=== PATIENT | male | born 1975 | race Caucasian/White ===

== ENCOUNTER 2020-03-15 19:07 | Emergency (ER) | payer OTHER ==
[~2020-03-15] VITALS: Ht 175.3 cm; Wt 106.6 kg
[2020-03-15] MEDS ORDERED: ATENOLOL 25 MG25 M1 PO (19:28)
[2020-03-15 23:43] LABS: CALCIUM 9.1 mg/dL (8.5-10.1); POTASSIUM 4.5 mmol/L (3.5-5.1)
[2020-03-15] MEDS ORDERED: NORCO 5-325 TA1 EAC2 PO (23:51)
[2020-03-15] MEDS ORDERED: FLEXERIL PO (23:51)
[2020-03-15] MEDS ORDERED: VOLTAREN GEL 1100 G1 TOP (23:51)
[2020-03-16 00:15] VITALS: BP 154/83
--- NOTE | 2020-03-16 15:53 | EKG ---
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
== END 2020-03-16 00:15 | disposition home or self-care (01) ==
LOC: M.ERS 19:07
PROVIDERS: Emergency Medicine Emergency Medical Services
DX: M77.12 Lateral epicondylitis, left elbow (principal); F17.200 Nicotine dependence, unspecified, uncomplicated; Z79.899 Other long term (current) drug therapy

== ENCOUNTER 2020-06-12 14:27 | Emergency (ER) | payer OTHER ==
[~2020-06-12] VITALS: Ht 175.3 cm; Wt 99.8 kg
[~2020-06-12 14:27] MED LIST: ATENOLOL 25 MG25 M1 PO; FLEXERIL PO; NORCO 5-325 TA1 EAC2 PO; VOLTAREN GEL 1100 G1 TOP
[2020-06-12 14:59] LABS: ABSOLUTE BASOPHILS 0.1 thou/uL (0.0-0.2); ABSOLUTE EOSINOPHILS 0.2 thou/uL (0.0-0.7); ABSOLUTE LYMPHOCYTES 2.4 thou/uL (0.8-5.3); ABSOLUTE MONOCYTES 0.7 thou/uL (0.0-1.2); ABSOLUTE NEUTROPHILS 5.7 thou/uL (1.6-8.1); BASOPHILS 0.8 %; HEMATOCRIT 49.4 % (42.0-52.0); HEMOGLOBIN 16.8 gm/dL (14.0-18.0); LYMPHOCYTES 26.8 %; MCH 31.1 pg (26.0-34.0); MCV 91.6 fL (80.0-100.0); MONOCYTES 7.3 %; MPV 7.8 fl. (7.2-11.1); NUCLEATED RBCS 0 /100WBC; PLATELET COUNT* 279 thou/uL (150-400); POLYS 63.1 %; RBC 5.39 mil/uL (4.50-6.00); RDW-CV 13.6 % (10.5-14.5)
[2020-06-12 15:04] LABS: CALCIUM 9.2 mg/dL (8.5-10.1); CREATININE 1.1 mg/dL (0.6-1.3)
[2020-06-12 15:15] LABS: ALBUMIN 3.6 g/dL (3.4-5.0); DIRECT BILIRUBIN 0.1 mg/dL (<0.1-0.3); MAGNESIUM 2.4 mg/dL (1.8-2.4); PHOSPHORUS* 2.2 mg/dL (2.5-4.9); TOTAL BILIRUBIN 0.5 mg/dL (<0.1-1.0); TOTAL PROTEIN 7.1 g/dL (6.4-8.2)
[2020-06-12] MEDS ORDERED: ULTRAM 50MG TAB50 MG PO (15:56)
[2020-06-12 16:09] VITALS: BP 132/71
--- NOTE | 2020-06-13 12:48 | EKG ---
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 : 1975 Requested By: Rafael Sellers Order Number: [id number] MD: Abhishek Hernández Measurements Intervals [place] Rate: 82 P: 63 [place]: 179 QRS: 28 QRSD: 99 T: 61 QT: 383 QTc: 448 Interpretive Statements Sinus rhythm Probable left atrial enlargement Compared to ECG 03/15/2020 22:41:50 No significant changes Electronically Signed On 06-13-2020 12:47:51 SECURITY DELIVERY SPECIALIST by Abhishek Hernández [email or web address] <ELECTRONICALLY SIGNED> By: Chilango Hernández MD, [facility] 06/13/20 1247 1432 1432 Chilango Hernández MD, [facility] /EPI
== END 2020-06-12 16:10 | disposition home or self-care (01) ==
LOC: M.ERS 14:27
PROVIDERS: Emergency Medicine
DX: R07.9 Chest pain, unspecified (principal); G43.909 Migraine, unspecified, not intractable, without status migrainosus; Z79.899 Other long term (current) drug therapy